=== PATIENT | male | born 1985 | race Two or more races ===

== ENCOUNTER 2020-01-17 17:29 | Inpatient (IN) | payer MEDICAID ==
[~2020-01-17] VITALS: Ht 170.2 cm; Wt 77.1 kg
[2020-01-17] MEDS ORDERED: PANTOPRAZOLE 40 MG VIAL IV ONE (18:00)
[2020-01-17] MEDS ORDERED: IV NS 0.9% 1,000 ML BAG IV ONE (18:00)
[2020-01-17] MEDS ORDERED: ONDANSETRON HCL/PF 4 MG/2 ML VIAL IV ONE (18:00)
[2020-01-17] MEDS ORDERED: ONDANSETRON HCL/PF 4 MG/2 ML VIAL ONE (18:05)
[2020-01-17] MEDS ORDERED: PANTOPRAZOLE 40 MG VIAL ONE (18:05)
[2020-01-17 18:08] LABS: BASOPHILS % (AUTO) 0.2 % (0.0-2.0); EOSINOPHILS % (AUTO) 0.5 % (0.0-6.0); HEMATOCRIT 44 % (39-51); HEMOGLOBIN 15.1 g/dL (13.5-17.5); LYMPHOCYTES # (AUTO) 0.4 /CMM (0.8-4.8); LYMPHOCYTES % (AUTO) 4.1 % (20.0-44.0); MEAN CORPUSCULAR HGB CONC 34 g/dl (31.0-36.0); MEAN CORPUSCULAR VOLUME 93 fL (80-96); MONOCYTES # (AUTO) 0.6 /CMM (0.1-1.30); MONOCYTES % (AUTO) 5.6 % (2.0-12.0); NEUTROPHILS # (AUTO) 8.9 /CMM (1.8-8.9); NEUTROPHILS % (AUTO) 89.6 % (43.0-81.0); PLATELET COUNT (AUTO) 269 /CMM (150-450); RED BLOOD CELL COUNT(AUTO) 4.75 MIL/uL (4.5-6.0); WHITE BLOOD COUNT (AUTO) 9.9 K/uL (4.3-11.0)
--- NOTE | 2020-01-17 18:13 | NUR ---
BIBFAMILY FROM HOME TO ER BED 11. AAOX4. NOT IN RESP DISTRESS. AMBULATORY. CAME IN FOR ABDOMINAL PAIN X 3 DAYS. SHARP CRAMPING 10/18. PT IS ALSO NAUSEOUS. MD WAS AT THE BEDSIDE FOR EVAL. ORDERS RECEIVED, NOTED AND CARRIED OUT. IV LINE IS ESTABLISHED ON R AC 18G, BLOOD DRAWN AND GIVEN TO GEAR ROLLER AT BEDSIDE. MEDICATED ORDERED.
[2020-01-17 18:34] LABS: CALCIUM, SERUM 9.3 mg/dL (8.5-10.1); POTASSIUM 3.5 mmol/L (3.5-5.1)
[2020-01-17 18:57] LABS: ALBUMIN 4.2 g/dL (3.4-5.0); BILIRUBIN,TOTAL 2.9 mg/dL (0.2-1.0)
[2020-01-17 19:17] LABS: BILIRUBIN,URINE LARGE (NEGATIVE); BLOOD, URINE Large Ery/uL (NEGATIVE); COLOR,URINE YELLOW (YELLOW); LEUKOCYTE ESTERASE ,URINE Negative (NEGATIVE); NITRITE, URINE Negative (NEGATIVE); PROTEIN,URINE 30 mg/dl (NEGATIVE); UGLUCOSE Negative (NEGATIVE); UROBILINOGEN,URINE 0.2 EU/dL (0.2)
--- NOTE | 2020-01-17 19:26 | NUR ---
AARONID SWABBED, SENT TO LAB.
[2020-01-17] MEDS ORDERED: KETOROLAC TROMETHAMINE INJ 30 MG/ML VIAL IV ONE (19:30)
--- NOTE | 2020-01-17 19:39 | NUR ---
US AT BEDSIDE. PT WILL GO TO CT AFTER.
[2020-01-17 19:50] LABS: RBC,URINE 21-50 /HPF (0-2)
[2020-01-17 19:53] LABS: WBC,URINE 0-2 /HPF (0-3)
[2020-01-17 19:54] LABS: BACTERIA,URINE Rare /HPF (None Seen)
[2020-01-17 19:56] LABS: MUCUS,URINE Rare /LPF (None Seen); SQUAMOUS EPITHELIAL CELL,UR 0-2 /HPF (None Seen)
--- NOTE | 2020-01-17 22:06 | NUR ---
DR KARNE NOEL PER KARLA PAIRKH
--- NOTE | 2020-01-17 22:20 | NUR ---
DR SHIVA NOEL PER KARLA PARIKH.
[2020-01-17] MEDS ORDERED: ONDANSETRON HCL/PF 4 MG/2 ML VIAL IVP PRN (23:00)
[2020-01-17] MEDS ORDERED: Z GUARD REMEDY 2 OZ OINT TP PRN (23:00)
[2020-01-17] MEDS ORDERED: ACETAMINOPHEN 650 MG/SUPP.RECT RC PRN (23:00)
[2020-01-17] MEDS ORDERED: MORPHINE SULFATE INJ 2 MG/ML DISP.SYRIN IV PRN (23:00)
--- NOTE | 2020-01-17 23:19 | NUR ---
REPORT GIVEN TO MED SURG. PT TRANSFERED.
--- NOTE | 2020-01-18 | NUR ---
RN NOTES : PT IS NPO PER MD ORDERS, WILL CONTINUTY WITH CARE.
[2020-01-18] MEDS: IV D5/0.45 NACL 1,000 ML IV PRN ×3 (00:07→18:14)
[2020-01-18 01:07] VITALS: BP 120/74
--- NOTE | 2020-01-18 01:20 | NUR ---
MS RN NOTES RECEIVED PATIENT FROM ER. PATIENT ALERT, ORIENTED X4. NO SOB OR ACUTE DISTRESS NOTES. PATIENT DENIES ANY PAIN/DISCOMFORT AND NAUSEAS AND VOMITING AT THIS TIME. PATIENT ORIENTED TO ROOM. CALL LIGHT WITHIN REACH. BED IN LOW LOCKED POSITION. SAFETY MEASURES IN PLACE. STARTED ON IV FLUIDS D5 1/2 NS 1000 / 125 ML HR, PER MD ORDERS. WILL CONTINUE TO MONITOR.
[2020-01-18 06:20] LABS: BASOPHILS % (AUTO) 0.2 % (0.0-2.0); EOSINOPHILS % (AUTO) 0.3 % (0.0-6.0); HEMATOCRIT 41 % (39-51); LYMPHOCYTES # (AUTO) 0.6 /CMM (0.8-4.8); LYMPHOCYTES % (AUTO) 6.8 % (20.0-44.0); MEAN CORPUSCULAR HGB CONC 35 g/dl (31.0-36.0); MEAN CORPUSCULAR VOLUME 92 fL (80-96); MONOCYTES # (AUTO) 0.7 /CMM (0.1-1.30); MONOCYTES % (AUTO) 7.7 % (2.0-12.0); NEUTROPHILS # (AUTO) 7.2 /CMM (1.8-8.9); PLATELET COUNT (AUTO) 254 /CMM (150-450); RED BLOOD CELL COUNT(AUTO) 4.41 MIL/uL (4.5-6.0); WHITE BLOOD COUNT (AUTO) 8.5 K/uL (4.3-11.0)
--- NOTE | 2020-01-18 06:50 | NUR ---
MS RN CLOSING NOTES: PATIENT ASLEEP SOUNDLY IN THE ROOM, IVF ON GOING WELL. NO COMPLAINS OF PAIN AT THIS TIME, WILL MONITOR PATIENTS PAIN STATUS. WILL ENDORSE PATIENT DAY SHIFT NURSE FOR CONTINUITY OF CARE.
[2020-01-18 07:15] LABS: CALCIUM, SERUM 8.3 mg/dL (8.5-10.1); CREATININE 0.8 mg/dL (0.6-1.3); MAGNESIUM 2.2 mg/dL (1.8-2.4); PHOSPHORUS 3.1 mg/dL (2.5-4.9); POTASSIUM 3.6 mmol/L (3.5-5.1)
[2020-01-18 07:26] LABS: THYROID STIMULATING HORMONE 0.131 uIU/mL (0.358-3.74)
--- NOTE | 2020-01-18 07:30 | NUR ---
MS RN NOTES PATIENT RECEIVED IN BED, SLEEPING EASILY AWAKEN BY NAME, ALERT AND ORIENTED X 4. PATIENT ON ROOM AIR WITH NO SIGNS OF RESPIRATORY DISTRESS NOTED AT THIS TIME, WITH EVEN NON-LABORED BREATHING, AND NO SOB NOTED. IV ACCESS INTACT AND PATENT, CURRENTLY INFUSING D5 1/2 AT 125ml/hr. SKIN WARM AND DRY TO TOUCH. PATIENT PRESENTING NO PAIN OR DISCOMFORT AT THIS TIME. SAFETY PRECAUTIONS IMPLEMENTED WITH BED LOCKED, BILATERAL SIDE RAILS UP, BED ALARM ON, BED IN THE LOWEST POSITION, AND CALL LIGHT WITHIN EASY REACH OF PATIENT. WILL CONTINUE TO MONITOR PATIENT.
[2020-01-18 08:00] VITALS: BP 123/71
[2020-01-18] MEDS: PANTOPRAZOLE 40 MG VIAL IV SCH (08:20)
[2020-01-18 16:00] VITALS: BP 111/59
--- NOTE | 2020-01-18 18:47 | NUR ---
MS RN NOTES PATIENT IN BED, ALERT AND ORIENTED X 4. PATIENT ON ROOM AIR WITH NO SIGNS OF RESPIRATORY DISTRESS NOTED AT THIS TIME, WITH EVEN NON-LABORED BREATHING, AND NO SOB NOTED. IV ACCESS INTACT AND PATENT, CURRENTLY INFUSING D5 1/2 AT 125ml/hr. SKIN KEPT CLEAN, WARM AND DRY TO TOUCH. PATIENT PRESENTING NO PAIN OR DISCOMFORT AT THIS TIME. MET ALL OF PATIENT'S NEEDS. SAFETY PRECAUTIONS IMPLEMENTED WITH BED LOCKED, BILATERAL SIDE RAILS UP, BED ALARM ON, BED IN THE LOWEST POSITION, AND CALL LIGHT WITHIN EASY REACH OF PATIENT. WILL ENDORSE PLAN OF CARE TO UPCOMING RN.
--- NOTE | 2020-01-18 20:17 | NUR ---
MS RN NOTE: PATIENT RESTING IN BED, NO ACUTE DISTRESS NOTED. BREATHING EVEN AND UNLABORED, NO SOB NOTED. MIDLINE TO R/ AC IN PLACE, INFUSING D5 1/2 NS AT 125ML/HR. BED LOCKED AND IN LOWEST POSITION, CALL LIGHT IN REACH. WILL CONTINUE TO MONITOR.
[2020-01-19] MEDS: IV D5/0.45 NACL 1,000 ML IV PRN ×3 (02:01→23:32)
[2020-01-19 06:13] LABS: BASOPHILS % (AUTO) 0.3 % (0.0-2.0); EOSINOPHILS % (AUTO) 2.1 % (0.0-6.0); HEMATOCRIT 38 % (39-51); HEMOGLOBIN 12.9 g/dL (13.5-17.5); LYMPHOCYTES # (AUTO) 1.2 /CMM (0.8-4.8); LYMPHOCYTES % (AUTO) 11.8 % (20.0-44.0); MEAN CORPUSCULAR HGB CONC 34 g/dl (31.0-36.0); MEAN CORPUSCULAR VOLUME 93 fL (80-96); MONOCYTES # (AUTO) 0.9 /CMM (0.1-1.30); MONOCYTES % (AUTO) 8.6 % (2.0-12.0); NEUTROPHILS # (AUTO) 7.8 /CMM (1.8-8.9); NEUTROPHILS % (AUTO) 77.2 % (43.0-81.0); PLATELET COUNT (AUTO) 248 /CMM (150-450); RED BLOOD CELL COUNT(AUTO) 4.11 MIL/uL (4.5-6.0)
--- NOTE | 2020-01-19 06:35 | NUR ---
MS RN CLOSING NOTES: PATIENT ASLEEP SOUNDLY IN THE ROOM, IVF ON GOING WELL.NO ACUTE DISTRESS NOTED, NO CHANGE OF CONDITION NOTED, NO COMPLAINS OF PAIN AT THIS TIME, WILL MONITOR PATIENTS PAIN STATUS. WILL ENDORSE PATIENT DAY SHIFT NURSE FOR CONTINUITY OF CARE.
--- NOTE | 2020-01-19 07:00 | NUR ---
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 NO MEDICAL HISTORY. NO KNOWN ALLERGIES. PT IS A&OX4 AND RESPONDS WELL TO INSTRUCTIONS. PT IS ON ROOM AIR WITH A O2 SAT OF 100%. THERE IS NO SOB. PT PULSE IS 67. PT SKIN IS INTACT. PT IS ABLE TO AMBULATE INDEPENDENTLY. SALINE LOCK PRESENT IN THE RIGHT ARM. PT IS CURRENTLY NPO. BED SET IN LOWEST POSITION. BED RAILS UP. CALL LIGHT WITHIN REACH. WILL CONTINUE TO MONITOR.
[2020-01-19 07:10] LABS: CALCIUM, SERUM 8.6 mg/dL (8.5-10.1); CREATININE 0.7 mg/dL (0.6-1.3); POTASSIUM 3.4 mmol/L (3.5-5.1)
[2020-01-19 08:00] VITALS: BP 99/57
[2020-01-19] MEDS: PANTOPRAZOLE 40 MG VIAL IV SCH (09:23)
[2020-01-19 10:59] LABS: ALBUMIN 3.2 g/dL (3.4-5.0); BILIRUBIN,DIRECT 0.5 mg/dL (0.0-0.2); TOTAL PROTEIN, SERUM 6.8 g/dL (6.4-8.2)
[2020-01-19] MEDS: POTASSIUM CL. PREMIX PERIPHER. 50 ML IV SCH ×2 (11:04→12:09)
--- NOTE | 2020-01-19 12:47 | NUR ---
GLENROY NOTES PT IS ADMITTED UNDER THE DIAGNOSIS OF CHOLEDOCHOLITHIASIS AND ACUTE PANCREATITIS. NO MEDICAL HISTORY. NO KNOWN ALLERGIES. PT IS A&OX4 AND RESPONDS WELL TO INSTRUCTIONS. PT IS ON ROOM AIR WITH A O2 SAT OF 100%. THERE IS NO SOB. PT PULSE IS 67. PT SKIN IS INTACT. PT IS ABLE TO AMBULATE INDEPENDENTLY. SA Addendum: 01/19/20 at 1253 by TOMA ALCANTARA RN INCOMPLETE NOTE
--- NOTE | 2020-01-19 13:20 | NUR ---
RN MS NOTES PT IN BED, AWAKE, ALERT AND ORIENTED, NO COMPLAINT OF PAIN AT THIS TIME, NOT IN DISTRESS, SEEN BY DR. LUCERO AND DR. OKEEFE, PLAN OF CARE DISCUSSED WITH PT, VERBALIZED UNDERSTANDING, PER MD OK TO START PT ON CLEAR LIQUID DIET AND ADVANCE TOLERATED TO LOW FAT LOW CHOLESTEROL DIET.
[2020-01-19 16:00] VITALS: BP 107/69
--- NOTE | 2020-01-19 18:16 | NUR ---
RN NOTE PT IS A&OX4 AND RESPONDS WELL TO INSTRUCTIONS. PT O2 SAT IS 95% ON RA. NO SOB PRESENT. PT PULSE IS 108. PT IS AMBULATORY. PT IS ABLE TO USE THE URINAL TO URINE. PT HAS BATHROOM PRIVILEGES. PT SKIN IS INTACT. PT DIET IS CLEAR LIQUIDS. WILL ADVANCE TO LOW FAT LOW CARB DIET TOLERATED. PT HAS SALINE LOCK PRESENT IN THE RIGHT ARM. PT IS AWAKE IN BED. BED SET IN LOWEST POSITION. BED RAILS RAISED. CALL LIGHT WITHIN REACH. SAFETY MEASURES IMPLEMENTED.
[2020-01-19 20:00] VITALS: BP 106/72
[2020-01-19] MEDS: FAMOTIDINE/PF INJ 20 MG/2 ML VIAL IV SCH (20:21)
[2020-01-19 20:30] VITALS: BP 110/70
[2020-01-20 07:04] LABS: CALCIUM, SERUM 8.5 mg/dL (8.5-10.1); CREATININE 0.8 mg/dL (0.6-1.3); POTASSIUM 3.4 mmol/L (3.5-5.1)
--- NOTE | 2020-01-20 07:42 | NUR ---
RN MS NOTE PATIENT IN BED RESTING COMFORTABLY. PATIENT IS IN NO ACUTE DISTRESS. NO SOB NOTED. PATIENTS BREATHING IS EVEN AND UNLABORED. PATIENT BED ALARM IS ON. SAFETY PRECAUTIONS IN PLACE. PATIENT BED IS LOCKED AND IN LOWEST POSITION. CALL LIGHT WITHIN REACH. WILL CONTINUE TO MONITOR.
[2020-01-20 08:00] VITALS: BP 106/63
[2020-01-20] MEDS: FAMOTIDINE/PF INJ 20 MG/2 ML VIAL IV SCH ×2 (08:14→21:11)
--- NOTE | 2020-01-20 09:50 | NUR ---
MS RN NOTE PATIENT TOLERATED CLEAR LIQUID DIET BREAKFAST. ORDER FOR ADVANCE TOLERATED. FOR LUNCH DIET ORDER CHANGED TO SOFT DIET LOW FAT LOW CHOLESTEROL.
[2020-01-20] MEDS ORDERED: POTASSIUM CHLORIDE 20 MEQ TAB.PRT.SR PO SCH (11:00)
[2020-01-20 12:47] LABS: ALBUMIN 3.1 g/dL (3.4-5.0); BILIRUBIN,DIRECT 0.3 mg/dL (0.0-0.2); BILIRUBIN,TOTAL 0.5 mg/dL (0.2-1.0); TOTAL PROTEIN, SERUM 6.7 g/dL (6.4-8.2)
[2020-01-20 16:00] VITALS: BP 107/71
--- NOTE | 2020-01-20 18:00 | NUR ---
MS RN NOTE PATIENT HAS NOT SIGNED CONSENT FORM FOR ERCP UNTIL SPOKEN TO BY DR. SHANNON.
--- NOTE | 2020-01-20 19:01 | NUR ---
MS RN NOTE PATIENT IS IN BED RESTING COMFORTABLY. PATIENT IS IN NO ACUTE DISTRESS. NO SOB NOTED. PATIENTS BREATHING IS EVEN AND UNLABORED. PATIENT KEPT CLEAN AND DRY, COMFORTABLE THROUGHOUT THE SHIFT. PATIENT STATES NO PAIN AT THIS TIME. PATIENT WILL REMAIN NPO PAST MIDNIGHT IN CASE HE SPEAKS TO AND AGREES TO ERCP. PATIENTS BED IS LOCKED AND AT THE LOWEST POSITION, CALL LIGHT WITHIN REACH. ENDORSE TO THE COPP[employer]ITH HELPER NURSE FOR JOSÉ LUIS.
[2020-01-20] MEDS: IV D5/0.45 NACL 1,000 ML IV PRN (19:51)
[2020-01-20 20:00] VITALS: BP 111/70
--- NOTE | 2020-01-20 22:53 | NUR ---
MS TIM NOTE: RECEIVED PT. RESTING IN BED WATCHING TV AND USING PHONE. A/O X 3-4. NO ACUTE DISTRESS NOTED. IV RAC 20 G INTACT AND INFUSING. BED IN LOW POSITION AND LOCKED. WILL CONTINUE TO MONITOR Addendum: 01/20/20 at 2255 by JJ HERNANDEZ RN 1939 ENTRY*
[2020-01-21 05:58] LABS: BASOPHILS % (AUTO) 0.4 % (0.0-2.0); EOSINOPHILS % (AUTO) 6.3 % (0.0-6.0); HEMATOCRIT 36 % (39-51); HEMOGLOBIN 12.5 g/dL (13.5-17.5); LYMPHOCYTES # (AUTO) 1.7 /CMM (0.8-4.8); LYMPHOCYTES % (AUTO) 25.1 % (20.0-44.0); MEAN CORPUSCULAR HGB CONC 34 g/dl (31.0-36.0); MEAN CORPUSCULAR VOLUME 92 fL (80-96); MONOCYTES # (AUTO) 0.6 /CMM (0.1-1.30); MONOCYTES % (AUTO) 8.5 % (2.0-12.0); NEUTROPHILS % (AUTO) 59.7 % (43.0-81.0); PLATELET COUNT (AUTO) 318 /CMM (150-450); RED BLOOD CELL COUNT(AUTO) 3.96 MIL/uL (4.5-6.0); WHITE BLOOD COUNT (AUTO) 6.8 K/uL (4.3-11.0)
[2020-01-21 06:25] LABS: ALBUMIN 3.2 g/dL (3.4-5.0); BILIRUBIN,DIRECT 0.3 mg/dL (0.0-0.2); BILIRUBIN,TOTAL 0.5 mg/dL (0.2-1.0); CALCIUM, SERUM 8.9 mg/dL (8.5-10.1); CREATININE 0.8 mg/dL (0.6-1.3); PHOSPHORUS 4.7 mg/dL (2.5-4.9); POTASSIUM 3.6 mmol/L (3.5-5.1); TOTAL PROTEIN, SERUM 6.8 g/dL (6.4-8.2)
--- NOTE | 2020-01-21 07:44 | NUR ---
RN MS NOTE PATIENT IN BED RESTING COMFORTABLY. PATIENT IS IN NO ACUTE DISTRESS. NO SOB NOTED. PATIENTS BREATHING IS EVEN AND UNLABORED. PATIENT MAINTAIN NPO STATUS. PATIENT BED ALARM IS ON. SAFETY PRECAUTIONS IN PLACE. PATIENT BED IS LOCKED AND IN LOWEST POSITION. CALL LIGHT WITHIN REACH. WILL CONTINUE TO MONITOR.
[2020-01-21 08:00] VITALS: BP 103/57
[2020-01-21] MEDS: FAMOTIDINE/PF INJ 20 MG/2 ML VIAL IV SCH (08:15)
[2020-01-21] MEDS: IV D5/0.45 NACL 1,000 ML IV PRN (08:17)
--- NOTE | 2020-01-21 08:23 | NUR ---
MS RN NOTE SPOKE WITH DR. HART. PER MD THEY WILL NOT DO ERCP. PER MD ORDER OKAY TO START ON SOFT DIET LOW FAT LOW CHOLESTEROL.
--- NOTE | 2020-01-21 12:30 | NUR ---
MS RN NOTE PATIENT TOLERATED BREAKFAST AND LUNCH. PATIENT IN NO ACUTE DISTRESS. DR. HAILEY CHIN.
--- NOTE | 2020-01-21 15:48 | NUR ---
MS SPRAY DRIER OPERATOR HELPER NOTE PATIENT IS IN NO ACUTE DISTRESS. PATIENTS BREATHING IS EVEN AND UNLABORED. NO SOB NOTED. PATIENT IS MEDICALLY STABLE FOR DISCHARGE. DC INSTRUCTION PROVIDED. PATIENT VERBALIZED UNDERSTANDING. SKIN ASSESSED, NO NEW SKIN BREAK DOWN NOTED. PATIENT HAS BELONGINGS WITH HIM, BELONGINGS LIST SIGNED. PATIENT KEPT CLEAN AND DRY THROUGHOUT MY SHIFT. PATIENTS NEEDS ADDRESSED. PATIENTS IV LINE AND ID BAND REMOVED. PATIENT AMBULATORY WITH STEADY GAIT. PATIENT STATES NO PAIN. PATIENTS HELICOPTER REPAIRER ARRANGED BY FAMILY. MD AWARE OF DISCHARGE.
== END 2020-01-21 15:50 | disposition home or self-care (01) ==
LOC: ER 17:43 → MED 23:12
PROVIDERS: ADMIT Registered Nurse; ATTEND Family Medicine
DX: K80.62 Calculus of gallbladder and bile duct with acute cholecystitis without obstruction (principal); K85.90 Acute pancreatitis without necrosis or infection, unspecified; E80.6 Other disorders of bilirubin metabolism; R74.01 Elevation of levels of liver transaminase levels; E87.6 Hypokalemia; Z20.828 Contact with and (suspected) exposure to other viral communicable diseases; F12.90 Cannabis use, unspecified, uncomplicated
CPT/HCPCS: 36415; 71045-TC; 74181-TC; 76705-TC; 80048-TC; 80061-TC; 80076-TC; 81001; 83690-TC; 83735-TC; 84100-TC; 84443-TC; 85025-TC; 85610-TC; 85730-TC; 87081-TC; C9113; C9803; G0378; J1885; J2270; J2405; J3480; J3490; J7030

== ENCOUNTER 2024-03-26 17:37 | Inpatient (IN) | payer MEDICAID ==
[~2024-03-26] VITALS: Ht 172.7 cm; Wt 103.0 kg
[2024-03-26] MEDS ORDERED: KETOROLAC TROMETHAMINE 15 MG/ML VIAL ONE (18:53)
[2024-03-26] MEDS: IV NS 0.9% 1,000 ML BAG IV ONE ×2 (19:00→19:27)
[2024-03-26 19:02] LABS: BASOPHILS % (AUTO) 0.2 % (0.0-2.0); EOSINOPHILS % (AUTO) 0.2 % (0.0-6.0); HEMATOCRIT 39 % (39-51); HEMOGLOBIN 13.7 g/dL (13.5-17.5); LYMPHOCYTES # (AUTO) 0.9 K/uL (0.8-4.8); MEAN CORPUSCULAR HEMOGLOBIN 32 PG (26.0-33.0); MEAN CORPUSCULAR HGB CONC 35 g/dl (31.0-36.0); MEAN CORPUSCULAR VOLUME 91 fL (80-96); MONOCYTES # (AUTO) 1.6 K/uL (0.1-1.30); MONOCYTES % (AUTO) 8.4 % (2.0-12.0); NEUTROPHILS # (AUTO) 16.2 K/uL (1.8-8.9); NEUTROPHILS % (AUTO) 86.2 % (43.0-81.0); PLATELET COUNT (AUTO) 345 K/uL (150-450); RED BLOOD CELL COUNT(AUTO) 4.25 MIL/uL (4.5-6.0); RED CELL DISTRIBUTION WIDTH 12.2 % (11.5-15.0); WHITE BLOOD COUNT (AUTO) 18.8 K/uL (4.3-11.0)
[2024-03-26] MEDS: KETOROLAC TROMETHAMINE 15 MG/ML VIAL IV ONE (19:03)
[2024-03-26 19:16] LABS: BILIRUBIN,DIRECT 6.3 mg/dL (0.0-0.2); BILIRUBIN,TOTAL 7.9 mg/dL (0.2-1.0); CALCIUM, SERUM 8.7 mg/dL (8.5-10.1); CREATININE 1.1 mg/dL (0.6-1.3); POTASSIUM 3.4 mmol/L (3.5-5.1)
[2024-03-26] MEDS ORDERED: PIPERACI/TAZO 3.375GM/D5W 50ML PB IV ONE (19:24)
[2024-03-26] MEDS: PIPERACILLIN /TAZOBACTAM 3.375 G in IV D5W 50 ML IV ONE (19:27)
[2024-03-26 19:44] LABS: INR 1.14 (0.91-1.10); PARTIAL THROMBOPLASTIN TIME 34.5 SEC (24.3-34.3)
[2024-03-26] MEDS ORDERED: IV NS 0.9% 250 ML IV ONE (19:55)
[2024-03-26] MEDS ORDERED: CT SWABBABLE VALVE TRANS SET 1 EA INFUS.SET MC ONE (19:55)
[2024-03-26] MEDS ORDERED: IOHEXOL-300 100 ML VIAL IV ONE (19:55)
[2024-03-26 20:45] LABS: APPEARANCE,URINE CLEAR (CLEAR); BILIRUBIN,URINE 3+ (NEGATIVE); BLOOD, URINE 3+ Ery/uL (NEGATIVE); COLOR,URINE DARK YELLOW (YELLOW); KETONES,URINE 2+ mg/dL (NEGATIVE); LEUKOCYTE ESTERASE ,URINE NEGATIVE (NEGATIVE); NITRITE, URINE NEGATIVE (NEGATIVE); PROTEIN,URINE 1+ mg/dl (NEGATIVE); UGLUCOSE NEGATIVE (NEGATIVE)
[2024-03-26 20:59] LABS: RBC,URINE 51-80 /HPF (0-2)
[2024-03-26 21:00] LABS: ADD URINE CULTURE NO; BACTERIA,URINE None seen /HPF (None Seen); WBC,URINE 0-2 /HPF (0-3)
[2024-03-26] MEDS ORDERED: hydrALAZINE HCL IV 20 MG VIAL IV PRN (21:30)
[2024-03-26] MEDS ORDERED: MORPHINE SULFATE INJ 2 MG/ML DISP.SYRIN IV PRN (21:30)
[2024-03-26] MEDS ORDERED: ACETAMINOPHEN 325 MG TABLET PO PRN (21:30)
[2024-03-26] MEDS ORDERED: ONDANSETRON HCL/PF 4 MG/2 ML VIAL IVP PRN (21:30)
[2024-03-26] MEDS ORDERED: CEFEPIME 1 GM VIAL ONE (23:38)
[2024-03-27] VITALS: BP 103/72; TEMP 98.4; O2SAT 98
[2024-03-27] MEDS: IV NS 0.9% 1,000 ML IV SCH (00:02)
[2024-03-27] MEDS: CEFEPIME 2 GM in IV NS 0.9% 50 ML IV ONE (00:02)
[2024-03-27 04:00] VITALS: BP 110/85; TEMP 101.3; O2SAT 98
[2024-03-27] MEDS: ACETAMINOPHEN 650 MG/SUPP.RECT RC PRN (04:57)
[2024-03-27 06:35] LABS: BASOPHILS % (AUTO) 0.1 % (0.0-2.0); EOSINOPHILS # (AUTO) 0.1 K/uL (0.0-0.7); EOSINOPHILS % (AUTO) 0.3 % (0.0-6.0); HEMATOCRIT 33 % (39-51); HEMOGLOBIN 11.2 g/dL (13.5-17.5); LYMPHOCYTES # (AUTO) 0.7 K/uL (0.8-4.8); LYMPHOCYTES % (AUTO) 3.9 % (20.0-44.0); MEAN CORPUSCULAR HEMOGLOBIN 31 PG (26.0-33.0); MEAN CORPUSCULAR HGB CONC 34 g/dl (31.0-36.0); MEAN CORPUSCULAR VOLUME 92 fL (80-96); MONOCYTES # (AUTO) 1.5 K/uL (0.1-1.30); MONOCYTES % (AUTO) 7.8 % (2.0-12.0); NEUTROPHILS # (AUTO) 16.5 K/uL (1.8-8.9); NEUTROPHILS % (AUTO) 87.9 % (43.0-81.0); PLATELET COUNT (AUTO) 306 K/uL (150-450); RED BLOOD CELL COUNT(AUTO) 3.59 MIL/uL (4.5-6.0); RED CELL DISTRIBUTION WIDTH 12.8 % (11.5-15.0); WHITE BLOOD COUNT (AUTO) 18.8 K/uL (4.3-11.0)
[2024-03-27 06:44] LABS: ALBUMIN 2.2 g/dL (3.4-5.0); BILIRUBIN,TOTAL 5.8 mg/dL (0.2-1.0); CALCIUM, SERUM 7.9 mg/dL (8.5-10.1); CREATININE 0.8 mg/dL (0.6-1.3); MAGNESIUM 2.3 mg/dL (1.8-2.4); PHOSPHORUS 2.4 mg/dL (2.5-4.9); POTASSIUM 3.2 mmol/L (3.5-5.1); TOTAL PROTEIN, SERUM 6.4 g/dL (6.4-8.2)
[2024-03-27 08:00] VITALS: BP 102/63; TEMP 97.9; O2SAT 99
[2024-03-27] MEDS: CEFEPIME 2 GM in IV D5W 100 ML IV SCH (08:23)
[2024-03-27] MEDS: POTASSIUM CL. PREMIX PERIPHER. 50 ML IV SCH (09:39)
[2024-03-27] MEDS ORDERED: INDOMETHACIN 100 MG SUPP.RECT ONE (11:57)
[2024-03-27] MEDS ORDERED: IOHEXOL 50 ML IV ONE (11:57)
[2024-03-27 12:00] VITALS: BP 102/63; TEMP 97.9; O2SAT 99
[2024-03-27] MEDS ORDERED: FENTANYL PF 100MCG/2ML AMPUL ONE (12:27)
[2024-03-27] MEDS ORDERED: ANESTHESIA TRAY IN PYXIS 1 EA TRAY MC ONE (14:39)
[2024-03-27 16:00] VITALS: BP 155/68; TEMP 98.7; O2SAT 99
[2024-03-27] MEDS: Sodium Phosphate 15 MMOL in IV NS 0.9% 245 ML IV ONE (16:22)
[2024-03-27 20:00] VITALS: BP 104/64; TEMP 98.2; O2SAT 98
[2024-03-28] VITALS: BP 105/67; TEMP 98.2; O2SAT 97
[2024-03-28 04:00] VITALS: BP 105/60; TEMP 98.4; O2SAT 97
[2024-03-28 06:45] LABS: BASOPHILS % (AUTO) 0.2 % (0.0-2.0); EOSINOPHILS # (AUTO) 0.1 K/uL (0.0-0.7); EOSINOPHILS % (AUTO) 0.3 % (0.0-6.0); HEMATOCRIT 32 % (39-51); HEMOGLOBIN 10.9 g/dL (13.5-17.5); LYMPHOCYTES # (AUTO) 1.1 K/uL (0.8-4.8); LYMPHOCYTES % (AUTO) 5.7 % (20.0-44.0); MEAN CORPUSCULAR HEMOGLOBIN 32 PG (26.0-33.0); MEAN CORPUSCULAR HGB CONC 34 g/dl (31.0-36.0); MEAN CORPUSCULAR VOLUME 92 fL (80-96); MONOCYTES # (AUTO) 1.1 K/uL (0.1-1.30); MONOCYTES % (AUTO) 5.9 % (2.0-12.0); NEUTROPHILS # (AUTO) 16.4 K/uL (1.8-8.9); NEUTROPHILS % (AUTO) 87.9 % (43.0-81.0); PLATELET COUNT (AUTO) 332 K/uL (150-450); RED BLOOD CELL COUNT(AUTO) 3.45 MIL/uL (4.5-6.0); RED CELL DISTRIBUTION WIDTH 12.6 % (11.5-15.0); WHITE BLOOD COUNT (AUTO) 18.7 K/uL (4.3-11.0)
[2024-03-28 06:52] LABS: MAGNESIUM 2.3 mg/dL (1.8-2.4); PHOSPHORUS 3.1 mg/dL (2.5-4.9)
[2024-03-28 07:00] LABS: ALBUMIN 1.9 g/dL (3.4-5.0); BILIRUBIN,TOTAL 2.2 mg/dL (0.2-1.0); CALCIUM, SERUM 7.7 mg/dL (8.5-10.1); CREATININE 0.7 mg/dL (0.6-1.3); POTASSIUM 3.8 mmol/L (3.5-5.1); TOTAL PROTEIN, SERUM 6.1 g/dL (6.4-8.2)
[2024-03-28 10:37] VITALS: BP 112/68; TEMP 98.2; O2SAT 97
[2024-03-28 12:20] VITALS: BP 100/66; TEMP 98.2; O2SAT 96
[2024-03-28] MEDS: IV NS 0.9% 1,000 ML IV PRN (12:24)
[2024-03-28 16:00] VITALS: BP 106/66; TEMP 97.9; O2SAT 96
[2024-03-28 20:00] VITALS: BP 124/69; TEMP 98.4; O2SAT 97
[2024-03-29] VITALS: BP 114/65; TEMP 98.8; O2SAT 96
[2024-03-29 04:00] VITALS: BP 115/64; TEMP 98.8; O2SAT 97
[2024-03-29 06:58] LABS: BASOPHILS % (AUTO) 0.5 % (0.0-2.0); EOSINOPHILS # (AUTO) 0.4 K/uL (0.0-0.7); EOSINOPHILS % (AUTO) 4.5 % (0.0-6.0); HEMATOCRIT 34 % (39-51); HEMOGLOBIN 11.5 g/dL (13.5-17.5); LYMPHOCYTES # (AUTO) 1.5 K/uL (0.8-4.8); LYMPHOCYTES % (AUTO) 15.6 % (20.0-44.0); MEAN CORPUSCULAR HEMOGLOBIN 31 PG (26.0-33.0); MEAN CORPUSCULAR HGB CONC 34 g/dl (31.0-36.0); MEAN CORPUSCULAR VOLUME 92 fL (80-96); MONOCYTES # (AUTO) 0.6 K/uL (0.1-1.30); MONOCYTES % (AUTO) 6.7 % (2.0-12.0); NEUTROPHILS # (AUTO) 6.8 K/uL (1.8-8.9); NEUTROPHILS % (AUTO) 72.7 % (43.0-81.0); PLATELET COUNT (AUTO) 384 K/uL (150-450); RED BLOOD CELL COUNT(AUTO) 3.67 MIL/uL (4.5-6.0); WHITE BLOOD COUNT (AUTO) 9.4 K/uL (4.3-11.0)
[2024-03-29 07:11] LABS: BILIRUBIN,TOTAL 1.4 mg/dL (0.2-1.0); CALCIUM, SERUM 7.9 mg/dL (8.5-10.1); CREATININE 0.7 mg/dL (0.6-1.3); MAGNESIUM 2.1 mg/dL (1.8-2.4); POTASSIUM 3.3 mmol/L (3.5-5.1)
[2024-03-29 08:00] VITALS: BP 109/68; TEMP 98.6; O2SAT 96
[2024-03-29] MEDS: POTASSIUM CL. PREMIX PERIPHER. 50 ML IV SCH (10:11)
[2024-03-29 11:34] LABS: BAND % (MANUAL) 1 % (0.0-5.0); EOSINOPHILS % (MANUAL) 5 % (0-4); LYMPHOCYTES % (MANUAL) 19 % (16-48); MONOCYTES % (MANUAL) 4 % (0-11.0); NEUTROPHILS % (MANUAL) 71 (42-76); PLATELET ESTIMATE ADEQUATE
[2024-03-29 11:36] LABS: STOMATOCYTES 1+
[2024-03-29 12:00] VITALS: BP 112/66; TEMP 97.8; O2SAT 96
[2024-03-29 12:39] LABS: INR 1.06 (0.91-1.10); PARTIAL THROMBOPLASTIN TIME 32.2 SEC (24.3-34.3); PROTHROMBIN TIME 11.2 SECS (9.2-11.1)
[2024-03-29 16:00] VITALS: BP 107/68; TEMP 97.7; O2SAT 96
[2024-03-29 20:00] VITALS: BP 109/67; TEMP 98.4; O2SAT 98
[2024-03-30] VITALS (7 sets, daily range): BP systolic 106–116; BP diastolic 65–78; TEMP 97.7–98.6; O2SAT 96–100
[2024-03-30 07:05] LABS: ALBUMIN 2.3 g/dL (3.4-5.0); BILIRUBIN,TOTAL 1.5 mg/dL (0.2-1.0); CALCIUM, SERUM 8.1 mg/dL (8.5-10.1); CREATININE 0.7 mg/dL (0.6-1.3); MAGNESIUM 1.9 mg/dL (1.8-2.4); PHOSPHORUS 3.8 mg/dL (2.5-4.9); POTASSIUM 3.3 mmol/L (3.5-5.1); TOTAL PROTEIN, SERUM 6.5 g/dL (6.4-8.2)
[2024-03-30] MEDS ORDERED: LIDOCAINE 1%-EPI 1:100,000 20 ML VIAL ONE (07:41)
[2024-03-30] MEDS ORDERED: BUPIVACAINE 0.5 % PF 150 MG/30 ML VIAL ONE ×2 (07:41→13:11)
[2024-03-30] MEDS: POTASSIUM CL. PREMIX PERIPHER. 50 ML IV SCH (08:27)
[2024-03-30 08:34] LABS: BASOPHILS % (AUTO) 0.4 % (0.0-2.0); EOSINOPHILS # (AUTO) 0.4 K/uL (0.0-0.7); EOSINOPHILS % (AUTO) 5.2 % (0.0-6.0); HEMATOCRIT 37 % (39-51); HEMOGLOBIN 12.4 g/dL (13.5-17.5); LYMPHOCYTES # (AUTO) 1.9 K/uL (0.8-4.8); LYMPHOCYTES % (AUTO) 25.1 % (20.0-44.0); MEAN CORPUSCULAR HEMOGLOBIN 31 PG (26.0-33.0); MEAN CORPUSCULAR HGB CONC 34 g/dl (31.0-36.0); MEAN CORPUSCULAR VOLUME 92 fL (80-96); MONOCYTES # (AUTO) 0.6 K/uL (0.1-1.30); NEUTROPHILS # (AUTO) 4.6 K/uL (1.8-8.9); NEUTROPHILS % (AUTO) 61.3 % (43.0-81.0); PLATELET COUNT (AUTO) 486 K/uL (150-450); WHITE BLOOD COUNT (AUTO) 7.5 K/uL (4.3-11.0)
[2024-03-30] MEDS ORDERED: ACETAMINOPHEN 325 MG TABLET ONE (10:37)
[2024-03-30] MEDS: ACETAMINOPHEN 325 MG TABLET PO ONE (10:41)
[2024-03-30] MEDS ORDERED: FENTANYL PF 250MCG/5ML AMPUL ONE (10:47)
[2024-03-30] MEDS ORDERED: ROCURONIUM BROMIDE 50 MG/5 ML ONE (10:48)
[2024-03-30] MEDS ORDERED: FAMOTIDINE/PF INJ 20 MG/2 ML VIAL IV ONE (10:48)
[2024-03-30] MEDS ORDERED: TRANEXAMIC ACID 1,000 MG/10 ML VIAL ONE (11:48)
[2024-03-30] MEDS ORDERED: SEVOFLURANE 250 ML BOTTLE IH ONE (11:55)
[2024-03-30] MEDS ORDERED: HYDROMORPHONE INJ 2 MG/ML DISP.SYRIN IV PRN (12:00)
[2024-03-30] MEDS ORDERED: ONDANSETRON HCL/PF 4 MG/2 ML VIAL IVP PRN (12:00)
[2024-03-30] MEDS ORDERED: BACITRACIN ZINC OINT (15 GM) 15 GM TUBE TP ONE (13:10)
[2024-03-30] MEDS: IV LR 1000 ML 1,000 ML IV SCH (14:57)
[2024-03-30] MEDS: PANTOPRAZOLE 40 MG TABLET.DR PO SCH (15:45)
[2024-03-31 01:05] VITALS: BP 105/72; TEMP 98.4; O2SAT 97
[2024-03-31 05:59] VITALS: BP 105/70; TEMP 98.4; O2SAT 97
[2024-03-31] MEDS: MORPHINE SULFATE INJ 4 MG/ML DISP.SYRIN IV PRN (07:53)
[2024-03-31 08:00] VITALS: BP 111/74; TEMP 98.2; O2SAT 97
[2024-03-31 08:19] LABS: BASOPHILS % (AUTO) 0.2 % (0.0-2.0); EOSINOPHILS # (AUTO) 0.1 K/uL (0.0-0.7); HEMATOCRIT 34 % (39-51); HEMOGLOBIN 11.6 g/dL (13.5-17.5); LYMPHOCYTES # (AUTO) 1.6 K/uL (0.8-4.8); LYMPHOCYTES % (AUTO) 12.6 % (20.0-44.0); MEAN CORPUSCULAR HEMOGLOBIN 31 PG (26.0-33.0); MEAN CORPUSCULAR HGB CONC 34 g/dl (31.0-36.0); MEAN CORPUSCULAR VOLUME 91 fL (80-96); MONOCYTES % (AUTO) 7.8 % (2.0-12.0); NEUTROPHILS % (AUTO) 78.4 % (43.0-81.0); PLATELET COUNT (AUTO) 486 K/uL (150-450); RED CELL DISTRIBUTION WIDTH 12.8 % (11.5-15.0); WHITE BLOOD COUNT (AUTO) 12.7 K/uL (4.3-11.0)
[2024-03-31 08:37] LABS: ALBUMIN 2.2 g/dL (3.4-5.0); BILIRUBIN,TOTAL 1.3 mg/dL (0.2-1.0); CALCIUM, SERUM 7.9 mg/dL (8.5-10.1); CREATININE 0.6 mg/dL (0.6-1.3); MAGNESIUM 1.7 mg/dL (1.8-2.4); POTASSIUM 3.6 mmol/L (3.5-5.1); TOTAL PROTEIN, SERUM 6.1 g/dL (6.4-8.2)
[2024-03-31] MEDS: MAGNESIUM OXIDE 400 MG TABLET PO ONE (10:03)
[2024-03-31 12:00] VITALS: BP 110/70; TEMP 98.1; O2SAT 98
[2024-03-31 16:00] VITALS: BP 107/65; TEMP 97.9; O2SAT 98
[2024-03-31] MEDS: PIPERACILLIN /TAZOBACTAM 3.375 G in IV D5W 50 ML IV SCH (17:11)
[2024-03-31] MEDS: Magnesium 1GM/D5W 100ML PREMIX 100 ML IV SCH (17:58)
[2024-03-31 21:56] VITALS: BP 108/69; TEMP 99; O2SAT 95
[2024-04-01 04:46] VITALS: BP 106/66; TEMP 99; O2SAT 94
[2024-04-01 07:45] LABS: CALCIUM, SERUM 8.2 mg/dL (8.5-10.1); CREATININE 0.6 mg/dL (0.6-1.3); MAGNESIUM 2.2 mg/dL (1.8-2.4); PHOSPHORUS 2.9 mg/dL (2.5-4.9); POTASSIUM 3.7 mmol/L (3.5-5.1)
[2024-04-01 07:55] LABS: BASOPHILS % (AUTO) 0.2 % (0.0-2.0); EOSINOPHILS # (AUTO) 0.2 K/uL (0.0-0.7); EOSINOPHILS % (AUTO) 1.5 % (0.0-6.0); HEMATOCRIT 35 % (39-51); HEMOGLOBIN 11.9 g/dL (13.5-17.5); LYMPHOCYTES # (AUTO) 1.4 K/uL (0.8-4.8); LYMPHOCYTES % (AUTO) 9.8 % (20.0-44.0); MEAN CORPUSCULAR HEMOGLOBIN 31 PG (26.0-33.0); MEAN CORPUSCULAR HGB CONC 34 g/dl (31.0-36.0); MEAN CORPUSCULAR VOLUME 92 fL (80-96); MONOCYTES # (AUTO) 1.2 K/uL (0.1-1.30); MONOCYTES % (AUTO) 7.9 % (2.0-12.0); NEUTROPHILS # (AUTO) 11.8 K/uL (1.8-8.9); NEUTROPHILS % (AUTO) 80.6 % (43.0-81.0); PLATELET COUNT (AUTO) 547 K/uL (150-450); RED BLOOD CELL COUNT(AUTO) 3.85 MIL/uL (4.5-6.0); WHITE BLOOD COUNT (AUTO) 14.7 K/uL (4.3-11.0)
[2024-04-01 08:00] VITALS: BP 124/77; TEMP 98.4; O2SAT 94
[2024-04-01 10:16] LABS: EOSINOPHILS % (MANUAL) 1 % (0-4); LYMPHOCYTES % (MANUAL) 9 % (16-48); MONOCYTES % (MANUAL) 4 % (0-11.0); NEUTROPHILS % (MANUAL) 86 (42-76); PLATELET ESTIMATE INCREASED; STOMATOCYTES 1+
[2024-04-01 16:00] VITALS: BP 118/79; TEMP 98.2; O2SAT 96
[2024-04-01] MEDS: IV LR 1000 ML 1,000 ML IV PRN (19:13)
[2024-04-02 01:45] VITALS: BP 126/81; TEMP 98.4; O2SAT 97
[2024-04-02] MEDS: SIMETHICONE 80 MG TAB.CHEW PO PRN (02:34)
[2024-04-02 04:00] VITALS: BP 115/73; TEMP 98.4; O2SAT 96
[2024-04-02 07:05] LABS: BASOPHILS % (AUTO) 0.3 % (0.0-2.0); EOSINOPHILS # (AUTO) 0.2 K/uL (0.0-0.7); EOSINOPHILS % (AUTO) 1.6 % (0.0-6.0); HEMATOCRIT 36 % (39-51); HEMOGLOBIN 12.4 g/dL (13.5-17.5); LYMPHOCYTES # (AUTO) 1.3 K/uL (0.8-4.8); MEAN CORPUSCULAR HEMOGLOBIN 32 PG (26.0-33.0); MEAN CORPUSCULAR HGB CONC 34 g/dl (31.0-36.0); MEAN CORPUSCULAR VOLUME 91 fL (80-96); MONOCYTES # (AUTO) 1.1 K/uL (0.1-1.30); NEUTROPHILS # (AUTO) 12.9 K/uL (1.8-8.9); NEUTROPHILS % (AUTO) 83.1 % (43.0-81.0); PLATELET COUNT (AUTO) 556 K/uL (150-450); RED BLOOD CELL COUNT(AUTO) 3.93 MIL/uL (4.5-6.0); WHITE BLOOD COUNT (AUTO) 15.6 K/uL (4.3-11.0)
[2024-04-02 07:25] LABS: ALBUMIN 2.4 g/dL (3.4-5.0); BILIRUBIN,TOTAL 1.2 mg/dL (0.2-1.0); CALCIUM, SERUM 8.3 mg/dL (8.5-10.1); CREATININE 0.7 mg/dL (0.6-1.3); MAGNESIUM 2.1 mg/dL (1.8-2.4); PHOSPHORUS 3.4 mg/dL (2.5-4.9); POTASSIUM 3.9 mmol/L (3.5-5.1); TOTAL PROTEIN, SERUM 6.6 g/dL (6.4-8.2)
[2024-04-02 08:00] VITALS: BP 114/75; TEMP 98.1; O2SAT 97
[2024-04-02 10:27] LABS: BAND % (MANUAL) 1 % (0.0-5.0); EOSINOPHILS % (MANUAL) 2 % (0-4); LYMPHOCYTES % (MANUAL) 8 % (16-48); MONOCYTES % (MANUAL) 5 % (0-11.0); MYELOCYTES % 5 % (0-0); NEUTROPHILS % (MANUAL) 79 (42-76); PLATELET ESTIMATE INCREASED; STOMATOCYTES 1+
[2024-04-02 10:28] LABS: ANISOCYTOSIS 1+
[2024-04-02] MEDS ORDERED: IV NS 0.9% 1,000 ML BAG IV SCH (12:00)
[2024-04-02] MEDS: IV NS 0.9% 500 ML IV ONE (13:01)
[2024-04-02] MEDS: IV LR 1000 ML 1,000 ML IV SCH (14:38)
[2024-04-02 16:00] VITALS: BP 110/73; TEMP 97.9; O2SAT 97
[2024-04-02] MEDS: LACTOBACILLUS RHAMNOSUS GG 1 EACH CAP.SPRINK PO SCH (16:23)
[2024-04-02 20:00] VITALS: BP 100/68; TEMP 97.9; O2SAT 96
[2024-04-03 04:00] VITALS: BP 102/69; TEMP 97.8; O2SAT 98
[2024-04-03 07:50] LABS: BASOPHILS % (AUTO) 0.2 % (0.0-2.0); EOSINOPHILS # (AUTO) 0.4 K/uL (0.0-0.7); EOSINOPHILS % (AUTO) 4.1 % (0.0-6.0); HEMATOCRIT 33 % (39-51); HEMOGLOBIN 11.4 g/dL (13.5-17.5); LYMPHOCYTES # (AUTO) 1.6 K/uL (0.8-4.8); LYMPHOCYTES % (AUTO) 16.9 % (20.0-44.0); MEAN CORPUSCULAR HEMOGLOBIN 32 PG (26.0-33.0); MEAN CORPUSCULAR HGB CONC 35 g/dl (31.0-36.0); MEAN CORPUSCULAR VOLUME 93 fL (80-96); MONOCYTES # (AUTO) 0.7 K/uL (0.1-1.30); MONOCYTES % (AUTO) 7.6 % (2.0-12.0); NEUTROPHILS # (AUTO) 6.6 K/uL (1.8-8.9); NEUTROPHILS % (AUTO) 71.2 % (43.0-81.0); PLATELET COUNT (AUTO) 523 K/uL (150-450); RED BLOOD CELL COUNT(AUTO) 3.54 MIL/uL (4.5-6.0); WHITE BLOOD COUNT (AUTO) 9.3 K/uL (4.3-11.0)
[2024-04-03 08:00] VITALS: BP 99/63; TEMP 97.9; O2SAT 96
[2024-04-03 08:30] LABS: CREATININE 0.7 mg/dL (0.6-1.3); MAGNESIUM 1.9 mg/dL (1.8-2.4); PHOSPHORUS 3.4 mg/dL (2.5-4.9); POTASSIUM 3.8 mmol/L (3.5-5.1)
[2024-04-03] MEDS ORDERED: IV LR 1000 ML 1,000 ML IV PRN (08:38)
[2024-04-03 08:48] LABS: BAND % (MANUAL) 1 % (0.0-5.0); EOSINOPHILS % (MANUAL) 5 % (0-4); LYMPHOCYTES % (MANUAL) 16 % (16-48); MONOCYTES % (MANUAL) 1 % (0-11.0); MYELOCYTES % 3 % (0-0); NEUTROPHILS % (MANUAL) 74 (42-76); PLATELET ESTIMATE INCREASED
[2024-04-03 08:49] LABS: ANISOCYTOSIS 1+
[2024-04-03] MEDS ORDERED: LACT1CAP72 PO (10:35)
[2024-04-03] MEDS ORDERED: METR500T PO (10:35)
[2024-04-03] MEDS ORDERED: CIPR-262 PO (10:35)
[2024-04-03] MEDS ORDERED: HYDR-4275 PO (10:35)
[2024-04-03] MEDS ORDERED: HYDR-3972 PO (10:46)
[2024-04-03] MEDS ORDERED: HYDR-3980 PO (10:51)
[2024-04-03] MEDS: PIPERACILLIN /TAZOBACTAM 3.375 G in IV D5W 100 ML IV SCH (11:38)
[2024-04-03 16:00] VITALS: BP 105/65; TEMP 98; O2SAT 96
[2024-04-03 19:35] LABS: HIV-1 p24 ANTIGEN NON REACTIVE (NONREACTIVE); HIV-1/2 ANTIBODY NON REACTIVE (NONREACTIVE)
[2024-04-04 23:07] LABS: HEPATITIS B CORE AB, TOTAL Negative (Negative)
== END 2024-04-03 16:30 | disposition home or self-care (01) | DRG 710 ==
LOC: ER 17:37 → MED 21:14 → TELE-TD 22:40 → TELE1 03-28 10:09 → MEDSG1 03-31 09:51
PROVIDERS: ADMIT Internal Medicine; ATTEND Nurse Practitioner Acute Care
PROC: 0F798DZ Dilation of Common Bile Duct with Intraluminal Device, Via Natural or Artificial Opening Endoscopic (ICD-10-PCS; principal; 2024-03-27)
PROC: 0FC98ZZ Extirpation of Matter from Common Bile Duct, Via Natural or Artificial Opening Endoscopic (ICD-10-PCS; 2024-03-27)
PROC: 0F794DZ Dilation of Common Bile Duct with Intraluminal Device, Percutaneous Endoscopic Approach (ICD-10-PCS; 2024-03-27)
PROC: 0DNU0ZZ Release Omentum, Open Approach (ICD-10-PCS; 2024-03-30)
PROC: 0FJ44ZZ Inspection of Gallbladder, Percutaneous Endoscopic Approach (ICD-10-PCS; 2024-03-30)
PROC: 0FT40ZZ Resection of Gallbladder, Open Approach (ICD-10-PCS; 2024-03-30)
DX: A41.9 Sepsis, unspecified organism (principal); K85.10 Biliary acute pancreatitis without necrosis or infection; K80.63 Calculus of gallbladder and bile duct with acute cholecystitis with obstruction; K82.A2 Perforation of gallbladder in cholecystitis; K82.A1 Gangrene of gallbladder in cholecystitis; E87.1 Hypo-osmolality and hyponatremia; R65.20 Severe sepsis without septic shock; F10.10 Alcohol abuse, uncomplicated; K66.0 Peritoneal adhesions (postprocedural) (postinfection); Y90.9 Presence of alcohol in blood, level not specified; Z56.0 Unemployment, unspecified; K76.0 Fatty (change of) liver, not elsewhere classified; E87.6 Hypokalemia; E86.0 Dehydration; K86.1 Other chronic pancreatitis; T50.905A Adverse effect of unspecified drugs, medicaments and biological substances, initial encounter; Y92.9 Unspecified place or not applicable
CPT/HCPCS: 36415; 74018; 76705-TC; 80048-TC; 80053-TC; 80076-TC; 81001; 83605-TC; 83690-TC; 83735-TC; 84100-TC; 85025-TC; 85730-TC; 86704; 86803; 86850-TC; 87040-TC; 87340; 87806; A4223; A6403; A9563; C1874; G0378; J0330; J0690; J0692; J1100; J1171; J1885; J2270; J2405; J2543; J2704; J2765; J3010; J3475; J3480; J3490; J7030; J7040; J7050; J7060; J7120; Q9967